=== PATIENT | male | born 1995 | race Caucasian/White ===

== ENCOUNTER 2020-05-11 20:54 | Emergency (ER) | payer OTHER ==
[~2020-05-11] VITALS: Ht 170.2 cm; Wt 117.0 kg
[2020-05-11 21:00] VITALS: BP_SYST 143
[2020-05-11] MEDS ORDERED: NACL 0.9% 1,000 ML IV ONE (21:45)
[2020-05-11 21:54] LABS: BASOPHILS % (AUTO) 0.4 % (0.0-2.0); BILIRUBIN,URINE NEGATIVE (NEGATIVE); BLOOD, URINE NEGATIVE (NEGATIVE); CLARITY/URINE CLEAR (CLEAR); COLOR,URINE YELLOW (YELLOW); EOSINOPHILS # (AUTO) 0.1 K/uL (0.0-0.4); GLUCOSE,URINE NEGATIVE (NEGATIVE); HEMATOCRIT 41.5 % (36-54); HEMOGLOBIN 13.9 g/dL (14.0-18.0); KETONES,URINE NEGATIVE (NEGATIVE); LEUKOCYTE ESTERASE ,URINE NEGATIVE (NEGATIVE); LYMPHOCYTES # (AUTO) 2.5 K/uL (1.0-5.5); LYMPHOCYTES % (AUTO) 27.7 % (20.5-51.5); MEAN CORPUSCULAR HEMOGLOBIN 30 pg (27-31); MEAN CORPUSCULAR HGB CONC 34 % (32-36); MEAN CORPUSCULAR VOLUME 90 fL (79.0-98.0); MONOCYTES # (AUTO) 0.6 K/uL (0.0-1.0); MONOCYTES % (AUTO) 6.9 % (1.7-9.3); NEUTROPHILS # (AUTO) 5.7 K/uL (1.8-7.7); NITRITE, URINE NEGATIVE (NEGATIVE); PLATELET COUNT (AUTO) 233 K/uL (130-430); PROTEIN URINE NEGATIVE (NEGATIVE); RED BLOOD CELL COUNT(AUTO) 4.64 MIL/uL (4.2-6.2); RED CELL DISTRIBUTION WIDTH 12.7 % (9.0-15.0); UROBILINOGEN,URINE 0.2 (0.2-1.0); WHITE BLOOD COUNT (AUTO) 8.9 K/uL (4.8-10.8)
[2020-05-11 22:02] LABS: ANION GAP 7 (5-15); CALCIUM 8.8 mg/dL (8.4-11.0); CHLORIDE 103 mmol/L (98-107); CREATININE 0.67 mg/dL (0.55-1.30); GLUCOSE 103 mg/dL (70-99); POTASSIUM 3.9 mmol/L (3.5-5.1); SODIUM SERUM 140 mmol/L (136-145); UREA NITROGEN, BLOOD 19 mg/dL (8-21)
[2020-05-11 22:03] LABS: GFR AFRICAN AMERICAN 189 mL/min (>90)
[2020-05-11 22:14] LABS: ALANINE AMINOTRANSFERASE 35 U/L (12-78); ALBUMIN 3.5 g/dL (3.4-4.8); ASPARTATE AMINOTRANSFERASE 22 U/L (10-37); TOTAL BILIRUBIN 0.2 mg/dL (0.0-1.0)
[2020-05-12 00:05] VITALS: BP_SYST 143
== END 2020-05-12 00:05 | disposition home or self-care (01) ==
LOC: SED 20:54
DX: E86.0 Dehydration (principal)
CPT/HCPCS: 36415; 71045; 80053; 81003; 82550; 84484; 85025; 99284; J7030